=== PATIENT | male | born 1945 | race Caucasian/White ===

== ENCOUNTER 2017-01-13 11:22 | Emergency (ER) | payer OTHER ==
[2017-01-13 11:28] VITALS: BP 112/73; TEMP 98.6; BMI 21.4
--- NOTE | 2017-01-13 11:48 | ED.PDOC ---
General ED Provider: Dr. ROSSANA CARDENAS Chief Complaint: Cough Stated Complaint: Pt presents with cough productive of green sputum x 4 days. PMH of COPD. +Cigs 1.5 PPD. Finished 10 day course of antibiotics for sore throat 10 days ago. Time Seen by Physician: 11:46 Mode of Arrival: Walk-In Information Source: Patient Exam Limitations: No limitations Nursing and Triage Documentation Reviewed and Agree: Yes Respiratory Complaint Exam - Respiratory Complaint/Exam Onset/Duration: 4 days Symptoms Are: Still present Timing: Constant Initial Severity: Mild Current Severity: Moderate Location: Chest Character: Reports: Productive cough (greem sputum) Aggravating: Reports: Exertion Alleviating: Reports: OTC Meds (honey helps cough some) Associated Signs and Symptoms: Denies: Fever, Chills, Sore throat Related History: Reports: Similar episode (Previous flares ups of COPD) History of Healthcare-Acquired Pneumonia: No Pulmonary Embolism Risk Factors: Smoking Cardiac Risk Factors: Reports: Smoking Pseudomonas Risk Factors: Reports: Chronic Lung Disease Status Asthmaticus Risk Factors: Reports: Recent steriods Home Oxygen Use: Yes Recent Stress Test: No Recent Echo/LV Function: No Current Antibiotic Use: Yes (for sore throat, name?) Current Asthma Medication Use: Yes (Spiriva inhaler (has other Rx's but refuses to take them)) Respiratory Distress: None Inadequate Respiratory Effort: No Dysphagia Present: No Stridor Present: No JVD Present: No Accessory Muscle Use: No Retractions: Not Present Diminished Breath Sounds: No Sinus Tenderness: None Grunting Respirations: No Kussmaul Respirations: No Differential Diagnoses: COPD Exacerbation, Bronchitis, Lower Resp. Infection Quality Indicators For Pneumonia: SpO2 assessed, Vital signs, Mental status assessed Review of Systems - Review Of Systems Constitutional: Reports: No symptoms Eyes: Reports: No symptoms Ears, Nose, Mouth, Throat: Reports: No symptoms Respiratory: Reports: Cough (productive of green sputum), Short of air Cardiac: Reports: No symptoms GI: Reports: No symptoms : Reports: No symptoms Musculoskeletal: Reports: No symptoms Skin: Reports: No symptoms Neurological: Reports: No symptoms All Other Systems: Reviewed and Negative Past Medical History - Past Medical History Previously Healthy: Yes Endocrine: Reports: None Cardiovascular: Reports: None Respiratory: Reports: COPD, Bronchitis Hematological: Reports: None Gastrointestinal: Reports: None Genitourinary: Reports: None Neuro/Psych: Reports: Schizophrenia (paranoid schizophrenia) Musculoskeletal: Reports: None Cancer: Reports: None - Surgical History General Surgical History: Reports: Other (lung biopsies) - Family History Family History: Reports: Unknown - Social History Smoking Status: Current every day smoker (1.5 PPD), Heavy tobacco smoker Hx Substance Use: No Alcohol Screening: None Lives: Alone - Immunizations Tetanus Shot up to Date: No Influenza Vaccine within 12 Months: No Pneumococcal Vaccine up to Date: No Physical Exam - Physical Exam Appearance: Ill-appearing, Well-nourished Ill-appearing: Mild Pain Distress: None Eyes: KARY, EOMI, Conjunctiva clear ENT: Nose normal, Oropharynx normal, TMs [place] (TMs griffin and dull) Neck: Supple Respiratory: Airway patent, Breath sounds equal, Rhonchi (few scattered rhonchi bilaterally) Cardiovascular: RRR, Pulses normal, No rub, No murmur GI/: Soft, Nontender, No masses, Bowel sounds normal, No Organomegaly Musculoskeletal: Normal strength, ROM intact, No edema, No calf tenderness Interpretation - Radiology Interpretation Radiology Interpretation By: Radiologist Radiology Results: Positive Exam Interpreted: CXR Xray Comments: possible pneumonia Radiology Interpretation By: Radiologist Radiology Results: Positive Exam Interpreted: CT Scan (lungs) Xray Comments: Bilateral pneumonia, cavitary lesion YAYO, severe emphysema Re-Evaluation - Re-Evaluation Time of Re-Evaluation: 14:10 Status: Unchanged Vital Signs Stable: Yes Pain Level: none Appearance: NAD Lungs: Other (unchanged: few scattered rhonchi bilaterally) Skin: Warm and Dry Neuro: Alert and Oriented X3 CV: RRR Additional Comments: Pt advised admission rec'd. Elected to leave [place] & go to [place] tomorrow Critical Care Note - Critical Care Note Total Time (mins): 0 Course - Course Hematology/Chemistry: 01/13/17 12:18 01/13/17 12:18 Orders, Labs, Meds: Lab Review 01/13/17 01/13/17 01/13/17 12:18 12:18 12:18 WBC 17.15 H RBC 5.53 Hgb 17.1 Hct 49.3 MCV 89.2 MCH 30.9 MCHC 34.7 RDW Coeff of Conner 13.3 Plt Count 196 Immature Gran % (Auto) 1.1 Neut % (Auto) 83.2 Lymph % (Auto) 6.6 L [place] % (Auto) 6.5 Eos % (Auto) 2.3 Baso % (Auto) 0.3 Immature Gran # (Auto) 0.2 Neut # 14.3 H Lymph # 1.1 [place] # 1.1 Eos # 0.4 Baso # 0.1 Sodium Potassium Chloride Carbon Dioxide Anion Gap BUN Creatinine Estimated GFR (MDRD) BUN/Creatinine Ratio Glucose Lactic Acid 12.3 Calcium Total Bilirubin AST ALT Alkaline Phosphatase Total Creatine Kinase Troponin I B-Natriuretic Peptide 27 Total Protein Albumin Globulin Albumin/Globulin Ratio 01/13/17 12:18 WBC RBC Hgb Hct MCV MCH MCHC RDW Coeff of [place] Plt Count Immature Gran % (Auto) Neut % (Auto) Lymph % (Auto) [place] % (Auto) Eos % (Auto) Baso % (Auto) Immature Gran # (Auto) Neut # Lymph # [place] # Eos # Baso # Sodium 135 L Potassium 4.1 Chloride 95 L Carbon Dioxide 32 H Anion Gap 12.1 BUN 21 H Creatinine 0.70 Estimated GFR (MDRD) 112.00 BUN/Creatinine Ratio 30.00 Glucose 78 L Lactic Acid Calcium 9.1 Total Bilirubin 1.50 H AST 15 ALT 21 Alkaline Phosphatase 91 Total Creatine Kinase 22 Troponin I 0.0130 B-Natriuretic Peptide Total Protein 6.4 Albumin 2.7 L Globulin 3.7 Albumin/Globulin Ratio 0.73 Orders Category Date Time Status EKG-(ED ONLY) Stat CARDIO 01/13/17 11:59 Completed NEBULIZER TREATMENT Stat CARDIO 01/13/17 13:13 Ordered BLOOD CULTURE (ED ONLY) Stat LAB 01/13/17 13:25 Received BNP [B-TYPE NATRIURETIC PEPTIDE] Stat LAB 01/13/17 12:18 Completed CBC W/ AUTO DIFF Stat LAB 01/13/17 12:18 Completed CK [CREATINE KINASE] Stat LAB 01/13/17 12:18 Completed COMPREHENSIVE METABOLIC PANEL Stat LAB 01/13/17 12:18 Completed GRAM STAIN Stat LAB 01/13/17 12:20 Completed LACTIC ACID Stat LAB 01/13/17 12:18 Completed SPUTUM CULTURE Stat LAB 01/13/17 12:40 Received TROPONIN I Stat LAB 01/13/17 12:18 Completed Ceftriaxone Sodium [Rocephin] 1 gm MEDS 01/13/17 14:09 Ordered 0.9 % Sodium Chloride [Sodium Chloride] 50 ml IV ONCE Ipratropium/Albuterol Neb [Duoneb] MEDS 01/13/17 13:13 Discontinued 1 vial NEB ONCE STA CHEST, 2 VIEWS PA & LAT Stat RADS 01/13/17 12:[address] CHEST W/O CONTRAST Stat RADS 01/13/17 13:09 Completed Medications Generic Name Dose Route Start Last Admin Trade Name Freq PRN Reason Stop Dose Admin Ceftriaxone Sodium 1 gm/ 50 mls @ 75 mls/hr 01/13/17 14:09 Sodium Chloride IV 01/13/17 14:48 ONCE STA Discontinued Medications Generic Name Dose Route Start Last Admin Trade Name Freq PRN Reason Stop Dose Admin Albuterol/Ipratropium 1 vial 01/13/17 13:13 01/13/17 13:38 Duoneb NEB 01/13/17 13:14 1 vial ONCE STA Administration Vital Signs: Temp Pulse Resp BP Pulse Ox 01/13/17 11:23 98.6 F 85 22 112/73 90 L Departure - Departure Time of Disposition: 14:23 Disposition: AMA Discharge Problem: Cavitary lesion of lung Bilateral pneumonia Qualifiers: Pneumonia type: due to unspecified organism Lung location: unspecified part of lung Qualified Code(s): J18.9 - Pneumonia, unspecified organism Instructions: Bacterial Pneumonia (ED) Condition: Good Pt referred to PMD for follow-up: Yes (Follow up with [facility] [place] tomorrow) Allergies/Adverse Reactions: Allergies Sulfa (Sulfonamide Antibiotics) Adverse Reaction (Verified 01/13/17 11:28) sulfabenzamide Adverse Reaction (Verified 01/13/17 11:28) Home Medications: Ambulatory Orders Azithromycin [Zithromax] 500 mg PO DAILY #5 tablet 01/13/17 Cefdinir [Omnicef] 300 mg PO BID #20 capsule 01/13/17 Tiotropium [place] [Spiriva] 1 cap INH DAILY 01/13/17 Disposition Discussed With: Patient, Family
[2017-01-13 12:25] LABS: BASOPHILS # (AUTO) 0.1 K/uL (0-0.2); BASOPHILS % (AUTO) 0.3 % (0.0-3.0); EOSINOPHILS # (AUTO) 0.4 K/ul (0.0-0.7); EOSINOPHILS % (AUTO) 2.3 % (0.0-7.0); HEMATOCRIT 49.3 % (42.0-52.0); HEMOGLOBIN 17.1 g/dl (14.0-18.0); IMMATURE GRANULOCYTE % (AUTO) 1.1 % (0.0-5.0); LYMPHOCYTES # (AUTO) 1.1 K/uL (0.60-3.4); LYMPHOCYTES % (AUTO) 6.6 (10.0-50.0); MEAN CORPUSCULAR HEMOGLOBIN 30.9 pg (27.0-31.0); MEAN CORPUSCULAR HGB CONC 34.7 (31.8-35.4); MEAN CORPUSCULAR VOLUME 89.2 fl (80.0-94.0); MONOCYTES # (AUTO) 1.1 K/uL (0.4-2.0); MONOCYTES % (AUTO) 6.5 (0-10); NEUTROPHILS # (AUTO) 14.3 K/ul (2.0-6.9); NEUTROPHILS % (AUTO) 83.2; PLATELET COUNT 196 10^3/uL (140-440); RED BLOOD COUNT 5.53 10^6/ul (4.70-6.10); WHITE BLOOD COUNT 17.15 K/ul (4.2-10.2)
--- NOTE | 2017-01-13 12:27 | DI ---
EXAM: Two views of the chest. History: Cough. Comparison: None available. Findings: Heart size is normal. Patchy infiltrates seen within the left lung. There is emphysema w ith suspected bullous formation in the left upper lung. No definite pleural fluid and no obvious pne umothorax. No acute osseous abnormalities. Impression: 1. Patchy infiltrates seen within the left lung could be acute or chronic. 2. Emphysema with suspected bullous formation in the left upper lung.
[2017-01-13 12:55] LABS: ALBUMIN 2.7 g/dL (3.4-5.0); ALBUMIN/GLOBULIN RATIO 0.73; ANION GAP 12.1; BILIRUBIN,TOTAL 1.5 mg/dL (0.00-1.20); CALCIUM 9.1 mg/dL (8.2-10.2); CREATININE 0.7 mg/dL (0.60-1.10); POTASSIUM 4.1 mmol/L (3.5-5.1); TOTAL PROTEIN 6.4 g/dL (5.8-8.1); TROPONIN I 0.013 ng/ml (0.0000-0.4000)
[2017-01-13] MEDS ORDERED: DUONEB NEB STA (13:13)
--- NOTE | 2017-01-13 13:38 | CT ---
EXAM: CT of the chest without contrast History: Productive cough. Comparison: Chest radiograph 01/13/2017 Technique: Multiplanar CT images through the thorax were obtained without the administration of IV c ontrast Findings: Heart size is normal. Small anterior pericardial effusion. Coronary calcifications. Gre at vessels are grossly unremarkable on this noncontrast study. No pathologically enlarged axillary o r mediastinal lymph nodes. Evaluation for hilar lymph nodes is limited due to the lack of contrast a dministration but no bulky adenopathy is seen. Severe emphysema. Bronchial wall thickening. Patchy bilateral lung infiltrates and scattered areas of scarring. 7 mm right lower lobe nodule. 5.4 cm x 2.8 cm x 2.6 cm partially cavitary lesion within the left upper lobe which contains calcification an d spiculations. No pleural fluid and no pneumothorax. Within the visualized upper abdomen, calcified granulomas within the liver and spleen. The 1.3 cm fa t containing lesion within the hepatic dome. No acute osseous abnormalities. Impression: 1. Bilateral pneumonia. 2. Irregular cavitary lesion within the left upper lobe could be infectious/inflammatory or neoplast ic etiology. Consider tuberculosis or fungal infection. Follow-up recommended. Tissue sampling of t he more solid component could be considered. 3. Severe emphysema. 4. Coronary artery disease. 5. Small benign fatty lesion within the hepatic dome.
[2017-01-13] MEDS ORDERED: ROCEPHIN 1 GM in SODIUM CHLORIDE 50 ML IV STA (14:09)
[2017-01-13] MEDS ORDERED: ROCEPHIN ONE (14:19)
== END 2017-01-13 15:13 | disposition left against medical advice (07) ==
LOC: ED 11:22
DX: J18.9 Pneumonia, unspecified organism (principal); R91.1 Solitary pulmonary nodule; F17.210 Nicotine dependence, cigarettes, uncomplicated; J44.9 Chronic obstructive pulmonary disease, unspecified
CPT/HCPCS: 36415; 80053; 82550; 83605; 83880; 84484; 85025; 87040; 87070; 87186; 87205; 93005; 93010; 94640; 96365; 99284

== ENCOUNTER 2017-11-14 14:04 | Outpatient (CLI) | END 2017-11-14 14:05 | disposition home or self-care (01) | LOC: AMBL 14:04 | PROVIDERS: ATTEND Internal Medicine | DX: R06.02 Shortness of breath (principal); R06.03 Acute respiratory distress; C15.9 Malignant neoplasm of esophagus, unspecified; J44.9 Chronic obstructive pulmonary disease, unspecified ==